=== PATIENT | male | born 1965 | race Caucasian/White ===

== ENCOUNTER 2017-04-13 05:51 | Emergency (ER) | payer BC ==
[~2017-04-13] VITALS: Ht 182.9 cm; Wt 159.1 kg
[2017-04-13] MEDS ORDERED: DABI150C PO (06:21)
[2017-04-13] MEDS ORDERED: LOSA25TA5 PO (06:22)
[2017-04-13] MEDS ORDERED: [UNRECOGNIZED DRUG - CODE] PO (06:22)
[2017-04-13] MEDS ORDERED: OMEP-110 PO (06:23)
[2017-04-13] MEDS ORDERED: FLUO10CA7 PO (06:23)
[2017-04-13] MEDS ORDERED: LEVO75TA5 PO (06:24)
[2017-04-13] MEDS ORDERED: FAMOTIDINE 20 MG/2 ML IVP ONE (06:30)
[2017-04-13] MEDS ORDERED: ONDANSETRON 2MG/ML, 2ML IVPush ONE (06:30)
[2017-04-13] MEDS ORDERED: MAALOX/HYOSCYAMINE/LIDOCAINE 45 ML BOTTLE PO ONE (06:30)
[2017-04-13] MEDS ORDERED: SODIUM CHLORIDE 0.9% 1,000ML IVBOLUS ONE (06:30)
[2017-04-13 07:01] LABS: BLOOD UREA NITROGEN 11 mg/dL (7-18)
[2017-04-13] MEDS ORDERED: MAALOX/HYOSCYAMINE/LIDOCAINE 45 ML BOTTLE ONE (07:02)
[2017-04-13] MEDS ORDERED: FAMOTIDINE 20 MG/2 ML ONE (07:03)
[2017-04-13] MEDS ORDERED: ONDANSETRON 2MG/ML, 2ML ONE (07:03)
[2017-04-13 08:03] VITALS: BP 131/74
== END 2017-04-13 08:06 | disposition home or self-care (01) ==
LOC: ED 07:08
DX: K29.20 Alcoholic gastritis without bleeding (principal); I50.9 Heart failure, unspecified; I11.0 Hypertensive heart disease with heart failure; E03.9 Hypothyroidism, unspecified; K21.9 Gastro-esophageal reflux disease without esophagitis; I48.0 Paroxysmal atrial fibrillation
CPT/HCPCS: 36415; 80048; 82040; 85025; 96361; 96374; 96375; 99284; J2405; J7030; S0028

== ENCOUNTER 2017-04-14 03:33 | Inpatient (IN) | payer BC ==
[~2017-04-14] VITALS: Ht 182.9 cm; Wt 159.6 kg
[~2017-04-14 03:33] MED LIST: DABI150C PO; FLUO10CA7 PO; LEVO75TA5 PO; LOSA25TA5 PO; OMEP-110 PO; [UNRECOGNIZED DRUG - CODE] PO
[2017-04-14 04:40] LABS: BLOOD UREA NITROGEN 11 mg/dL (7-18)
[2017-04-14 04:44] LABS: ASPARTATE AMINO TRANSFERASE 26 U/L (15-37)
[2017-04-14 04:46] LABS: IS PT STATUS REG ER OR PRE ER? YES
[2017-04-14] MEDS ORDERED: FUROSEMIDE 40 MG TABLET PO SCH (05:00)
[2017-04-14] MEDS ORDERED: OMNIPAQUE 350 MG/ML, 100ML BOTTLE ONE (06:22)
[2017-04-14] MEDS ORDERED: POLYETHYLENE GLYCOL 17 GM PACKET PO PRN (07:30)
[2017-04-14] MEDS ORDERED: BISACODYL 10 MG SUPP PR PRN (07:30)
[2017-04-14] MEDS ORDERED: ONDANSETRON 2MG/ML, 2ML IVPush PRN (07:30)
[2017-04-14] MEDS ORDERED: DOCUSATE 100 MG CAPSULE PO PRN (07:30)
[2017-04-14] MEDS ORDERED: PROMETHAZINE 25 MG/ML, 1ML IM PRN (07:30)
[2017-04-14 08:03] LABS: IS PT STATUS REG ER OR PRE ER? NO
[2017-04-14 08:18] VITALS: BP 115/67
[2017-04-14] MEDS ORDERED: PLEASE ENTER HEIGHT AND WEIGHT MC SCH (08:30)
[2017-04-14] MEDS: DABIGATRAN 150 MG CAPSULE PO SCH ×2 (11:51→20:26)
[2017-04-14] MEDS: FLUOXETINE 10 MG CAP PO SCH (11:52)
[2017-04-14] MEDS: POTASSIUM CHLORIDE 10 MEQ TABLET.ER PO SCH ×2 (11:53→17:15)
[2017-04-14] MEDS: LOSARTAN 25MG TABLET PO SCH (11:53)
[2017-04-14] MEDS: LEVOTHYROXINE 75 MCG TABLET PO SCH (11:54)
[2017-04-14] MEDS: FUROSEMIDE 20 MG/2 ML IV SCH ×2 (11:55→17:15)
[2017-04-14] MEDS: ACETAMINOPHEN 325 MG TABLET PO PRN (13:26)
[2017-04-14 13:37] LABS: IS PT STATUS REG ER OR PRE ER? NO
[2017-04-14 13:38] VITALS: BP 109/71
[2017-04-14 20:16] VITALS: BP 108/66
[2017-04-14] MEDS: TEMAZEPAM 15 MG CAPSULE PO PRN (20:26)
[2017-04-14] MEDS: DOXYCYCLINE 100MG TABLET PO SCH (21:41)
[2017-04-15 02:45] VITALS: BP 111/72
[2017-04-15 06:02] LABS: ASPARTATE AMINO TRANSFERASE 34 U/L (15-37); BLOOD UREA NITROGEN 13 mg/dL (7-18)
[2017-04-15 07:20] VITALS: BP 113/73
[2017-04-15] MEDS: FUROSEMIDE 20 MG/2 ML IV SCH ×2 (07:30→08:31)
[2017-04-15] MEDS: POTASSIUM CHLORIDE 10 MEQ TABLET.ER PO SCH (08:00)
[2017-04-15] MEDS: DOXYCYCLINE 100MG TABLET PO SCH ×2 (08:30→21:46)
[2017-04-15] MEDS: DABIGATRAN 150 MG CAPSULE PO SCH ×2 (08:30→21:47)
[2017-04-15] MEDS: LEVOTHYROXINE 75 MCG TABLET PO SCH (08:30)
[2017-04-15] MEDS: LOSARTAN 25MG TABLET PO SCH (08:31)
[2017-04-15] MEDS: FLUOXETINE 10 MG CAP PO SCH (08:31)
[2017-04-15 13:17] VITALS: BP 96/66
[2017-04-15] MEDS: ACETAMINOPHEN 325 MG TABLET PO PRN (13:32)
[2017-04-15] MEDS: POTASSIUM CHLORIDE 20 MEQ TAB.ER.PRT PO SCH (17:09)
[2017-04-15] MEDS ORDERED: POLYETHYLENE GLYCOL 17 GM PACKET PO PRN (19:30)
[2017-04-15] MEDS ORDERED: DOCUSATE 100 MG CAPSULE PO PRN (19:30)
[2017-04-15] MEDS ORDERED: BISACODYL 10 MG SUPP PR PRN (19:30)
[2017-04-15 19:45] VITALS: BP 99/65
[2017-04-15] MEDS: TEMAZEPAM 15 MG CAPSULE PO PRN (21:47)
[2017-04-16 01:30] VITALS: BP 106/71
[2017-04-16 06:00] LABS: BLOOD UREA NITROGEN 17 mg/dL (7-18)
[2017-04-16 07:14] VITALS: BP 108/74
[2017-04-16] MEDS ORDERED: REGADENOSON 0.4 MG/5 ML SYRINGE ONE (08:21)
[2017-04-16] MEDS: FUROSEMIDE 20 MG/2 ML IV SCH (10:33)
[2017-04-16] MEDS: DABIGATRAN 150 MG CAPSULE PO SCH ×2 (10:34→20:27)
[2017-04-16] MEDS: DOXYCYCLINE 100MG TABLET PO SCH ×2 (10:34→20:27)
[2017-04-16] MEDS: LEVOTHYROXINE 88 MCG TABLET PO SCH (10:34)
[2017-04-16] MEDS: FLUOXETINE 10 MG CAP PO SCH (10:34)
[2017-04-16] MEDS: LOSARTAN 25MG TABLET PO SCH (10:34)
[2017-04-16] MEDS: POTASSIUM CHLORIDE 20 MEQ TAB.ER.PRT PO SCH ×2 (10:34→18:23)
[2017-04-16] MEDS: ACETAMINOPHEN 325 MG TABLET PO PRN (12:04)
[2017-04-16 12:40] VITALS: BP 114/75
[2017-04-16 20:00] VITALS: BP 109/72
[2017-04-16] MEDS: TEMAZEPAM 15 MG CAPSULE PO PRN (21:02)
[2017-04-17 02:00] VITALS: BP 107/68
[2017-04-17 07:20] VITALS: BP 124/84
[2017-04-17] MEDS: FUROSEMIDE 20 MG/2 ML IV SCH (08:45)
[2017-04-17] MEDS: LEVOTHYROXINE 88 MCG TABLET PO SCH (08:45)
[2017-04-17] MEDS: DOXYCYCLINE 100MG TABLET PO SCH (08:45)
[2017-04-17] MEDS: LOSARTAN 25MG TABLET PO SCH (08:46)
[2017-04-17] MEDS: DABIGATRAN 150 MG CAPSULE PO SCH (08:46)
[2017-04-17] MEDS: FLUOXETINE 10 MG CAP PO SCH (08:46)
[2017-04-17] MEDS: POTASSIUM CHLORIDE 20 MEQ TAB.ER.PRT PO SCH (08:46)
[2017-04-17] MEDS ORDERED: DOXY100T PO (10:24)
== END 2017-04-17 14:00 | disposition home or self-care (01) | DRG 189 ==
LOC: ED 03:50 → EDIP 06:58 → 4WST 08:01 → 4EST 08:11 → DCLOUNGE 04-17 13:43
PROVIDERS: ADMIT Internal Medicine; ATTEND Family Medicine
PROC: 5A09457 Assistance with Respiratory Ventilation, 24-96 Consecutive Hours, Continuous Positive Airway Pressure (ICD-10-PCS; principal; 2017-04-14)
DX: J96.01 Acute respiratory failure with hypoxia (principal); I50.43 Acute on chronic combined systolic (congestive) and diastolic (congestive) heart failure; I42.9 Cardiomyopathy, unspecified; D68.69 Other thrombophilia; Z68.42 Body mass index [BMI] 45.0-49.9, adult; I48.2 Chronic atrial fibrillation; G47.33 Obstructive sleep apnea (adult) (pediatric); E03.9 Hypothyroidism, unspecified; F32.9 Major depressive disorder, single episode, unspecified; F10.20 Alcohol dependence, uncomplicated; J44.9 Chronic obstructive pulmonary disease, unspecified; D69.6 Thrombocytopenia, unspecified; E66.01 Morbid (severe) obesity due to excess calories; D63.8 Anemia in other chronic diseases classified elsewhere; E87.6 Hypokalemia; I20.9 Angina pectoris, unspecified; Z95.0 Presence of cardiac pacemaker; Z79.899 Other long term (current) drug therapy; Z98.84 Bariatric surgery status; Z90.49 Acquired absence of other specified parts of digestive tract
CPT/HCPCS: 36415; 71010; 71275; 78452; 80048; 80053; 80061; 83880; 84443; 84484; 85025; 93005; 93017; 94660; 99285; C8929; J2785; Q9967; A9502; C9898; J1940